=== PATIENT | male | born 1975 | race Caucasian/White ===

== ENCOUNTER → 2019-12-07 11:49 | Outpatient (BNVA) | payer SELFPAY | PROVIDERS: Visit Provider Nurse Practitioner Family | DX: M25.562 Pain in left knee (principal) | CPT/HCPCS: 73562 ==

== ENCOUNTER 2020-06-27 19:53 | Emergency (ER) | payer SELFPAY ==
--- NOTE | 2020-06-27 19:54 | XR_ITS ---
WS: [id number] Right foot, 3 views, 06/27/2020 Clinical Data: pain Comparison: None. Findings: No fractures or dislocations are seen. No bone destruction or erosion is noted. The joint spaces and soft tissues are normal. XR/XR foot RT min 3V* [id number] Impression: Negative right foot.
[2020-06-27 20:10] VITALS: BP 108/62; PULSE 80; RESP 14; TEMP 36.7; O2SAT 98; BMI 25.1
--- NOTE | 2020-06-27 21:02 | W.ED.EXTPRO ---
HPI - Extremity Problem General: Chief complaint: Extremity Injury, Lower Stated complaint: RIGHT FOOT PAIN Time Seen by Provider: 06/27/20 20:44 History of Present Illness: HPI Narrative: Patient is a 45-year-old male who comes to the ED with right foot pain. Patient says he injured his right foot just prior to arrival. He says he has jammed his right foot into an object. He now reports having 6 out of 10 pain over the second and third metatarsal on the right foot. He denies taking any hyxt-sle-qyjddwg pain meds before coming to the ED. Associated symptoms: Deny chest pain, fever(s) or rash Review of Systems Const: Denies: fever(s), chills or fatigue Eyes: Denies: change in vision or eye discomfort ENMT: Denies: throat pain, odynophagia, nasal discharge or nasal congestion Card: Denies: chest pain, palpitations, edema, swelling of feet/ankles, dyspnea on exertion or orthopnea Resp: Denies: dyspnea, productive cough or non-productive cough GI: Denies: abdominal pain, nausea, vomiting, diarrhea, constipation or hematochezia : Denies: flank pain, difficulty urinating, dysuria or hematuria Musc: Reports: extremity pain (Right foot pain?around second and third metatarsal.); Denies: neck pain, back pain or extremity swelling Skin/Breast: Denies: rash or new lesions Neuro: Denies: headache(s), numbness in extremities or weakness in extremities PFS ED PFSH: Medical History Chronic shoulder pain Family History Other No pertinent family history Social History Smoking and tobacco status: current every day smoker cigarettes Years cigarettes smoked: 4 Second hand smoke exposure: No Alcohol intake: current Alcohol intake frequency: few times a month Alcohol type: beer Lives independently: Yes Marital status: Single Current occupational status: employed Current occupation: [email or web address] History of recent travel: No Current gender identity: Male Physical Exam Const: COMMON NORMALS: no acute distress, patient oriented x3, healthy appearing and alert GENERAL APPEARANCE: cooperative and comfortable HENMT: COMMON NORMALS: normocephalic HEAD & SCALP: normocephalic MOUTH: Normal oral and palatal mucosa present THROAT: posterior oropharynx normal and uvula midline Neck/C-Spine: COMMON NORMALS: supple GENERAL: Yes normal visual inspection Resp: COMMON NORMALS: normal respiratory effort, No retractions, No use of accessory muscles and clear to auscultation bilaterally AUSCULTATION: clear to auscultation bilaterally Cardio: COMMON NORMALS: regular rate, regular rhythm, S1 normal heart sound present, S2 normal heart sound present, No gallops present (Cardio), No clicks present (Cardio), No murmurs present (Cardio) and Peripheral pulses 2+ throughout RATE: regular rate RHYTHM: regular rhythm HEART SOUNDS: S1 normal heart sound present and S2 normal heart sound present PERIPHERAL PULSES: Peripheral pulses 2+ throughout GI: COMMON NORMALS: Normal to inspection, nondistended, normoactive bowel sounds present, Soft to palpation, non-tender and no masses PALPATION: Yes Soft to palpation : COMMON NORMALS: Yes no CVA tenderness BLADDER/KIDNEY EXAM: Yes no CVA tenderness Back/Pelvis: COMMON NORMALS: no CVA tenderness Extremity: NARRATIVE EXTREMITY EXAM: Patient's right foot appeared normal and there is no edema, ecchymosis or erythema seen. Patient was able to move toes and cap refill normal and sensation to foot and toes normal. Pedal pulse 2+. Patient had some mild tenderness over the second and third metatarsals. GENERAL: Yes normal exam except as noted Neuro: COMMON NORMALS: patient oriented x3 and moves all extremities SENSORIUM/ORIENTATION: Yes alert Skin: COMMON NORMALS: no rashes or lesions noted GENERAL SKIN EXAM: no rashes or lesions noted and dry skin Course Vital Signs: Vital signs: Vital Signs Temperature 98.1 F 06/27/20 20:10 Pulse Rate 80 06/27/20 20:10 Respiratory Rate 14 06/27/20 20:10 Blood Pressure 108/62 06/27/20 20:10 Pulse Oximetry 98 06/27/20 20:10 MDM - Extremity (Nontraumatic) MDM Narrative: Medical decision making narrative: Patient comes the ED with right foot pain due to injury. Physical exam showed some mild tenderness upon palpation over the second and third metatarsal right foot. X-ray of right foot showed no acute fractures or findings. Patient was discharged with with right foot pain and told to rest, ice and elevate foot. Take ibuprofen for pain. Return to ED precautions given. Patient understood and agreed with plan. Imaging Data^: Xray Ortho: Attestation: I personally reviewed and interpreted this imaging study as follows: My impression: Right foot x-ray showed no acute findings. Discharge Plan Discharge Patient Disposition: Home Clinical Impression: Right foot pain Right foot injury Qualifiers: Encounter type: initial encounter Qualified Code(s): S99.921A - Unspecified injury of right foot, initial encounter Condition: Stable Prescriptions: No Action gabapentin 600 mg tablet 600 mg PO TID Qty: 90 RF: 4 Discharge Orders: Discharge Order (Routine); Ordered 06/27/20 Ordered By: Berry Griffin Discharge Diet: Regular Discharge Activity: Increase activity as tolerated Activity Restrictions/Additional Instructions: Follow-up with medical provider as directed in 7-10 days. Limit weightbearing for the next 3 days to allow for healing. Rest ice and elevate foot. Take [id number] ibuprofen for pain. Return to the ER or your medical provider if condition worsens. Please read and understand discharge instructions. If any questions, please ask. Stand Alone Forms: Work/School Release Discharge Date/Time: 06/27/20 21:25 Coding Level of Care Code ED [employer] for [employer] Exam Comprehensive
[2020-06-27] MEDS: HYDROcodone-acetaminophen 7.5-325 mg Tablet 1 TAB PO (21:20)
== END 2020-06-27 21:25 | disposition home or self-care (01) ==
PROVIDERS: Emergency Provider Physician Assistant
DX: M79.671 Pain in right foot (principal); F17.210 Nicotine dependence, cigarettes, uncomplicated
CPT/HCPCS: 73630; 99281; 99283